=== PATIENT | female | born 1970 | race Caucasian/White ===

== ENCOUNTER 2017-10-02 21:09 | Emergency (ER) | payer SELFPAY ==
[~2017-10-02] VITALS: Ht 162.6 cm; Wt 113.6 kg
[~2017-10-02 21:09] MED LIST: EPIN0.3P2 IM; IBUP-2077 PO; PREG25 PO
[2017-10-02] MEDS ORDERED: ASPI-556 PO (21:12)
[2017-10-02 21:40] LABS: APPEARANCE,URINE TURBID (CLEAR); BILIRUBIN,URINE NEGATIVE (NEGATIVE); GLUCOSE, URINE (UA) NEGATIVE (NEGATIVE); KETONES,URINE TRACE mg/dL (NEGATIVE); LEUKOCYTE ESTERASE ,URINE LARGE (NEGATIVE); NITRATE,URINE POSITIVE (NEGATIVE); OCCULT BLOOD,URINE LARGE (NEGATIVE); PROTEIN,URINE SEE CONFIRM (NEGATIVE)
[2017-10-02 21:45] LABS: HCG,QUAL RESULT NEGATIVE (NEGATIVE)
[2017-10-02 21:49] LABS: BACTERIA,URINE Moderate /HPF (None Seen); RBC,URINE >100 /HPF (0-2); SULFOSALICYLIC ACID,URINE 2+ (Negative); WBC,URINE 26-50 /HPF (0-5)
[2017-10-02 21:50] LABS: SQUAMOUS EPITHELIAL CELL,UR Few /LPF (None Seen)
[2017-10-02 23:45] VITALS: BP 128/77
[2017-10-02] MEDS ORDERED: ACETAMINOPHEN/CODEINE 300-30 MG TABLET PO ONE (23:45)
[2017-10-02] MEDS ORDERED: LIDOCAINE HCL/PF 1% 2 ML VIAL IM ONE (23:45)
[2017-10-02] MEDS ORDERED: ONDANSETRON HCL 4 MG TABLET PO ONE (23:45)
[2017-10-02] MEDS ORDERED: LEVOFLOXACIN 500 MG TABLET PO ONE (23:45)
[2017-10-02] MEDS ORDERED: CefTRIAXone SODIUM 1 GM/VIAL IM ONE (23:45)
== END 2017-10-02 23:54 | disposition home or self-care (01) ==
LOC: EMS 21:10
DX: N10 Acute pyelonephritis (principal); F41.9 Anxiety disorder, unspecified; I10 Essential (primary) hypertension; F17.210 Nicotine dependence, cigarettes, uncomplicated; Z79.82 Long term (current) use of aspirin; Z87.440 Personal history of urinary (tract) infections; Z91.013 Allergy to seafood
CPT/HCPCS: 81001; 84703; 87077; 87086; 87186; 96372; 99284; 99406; J0696; J3490; Q0162

== ENCOUNTER 2017-10-27 17:37 | Emergency (ER) | payer SELFPAY ==
[~2017-10-27] VITALS: Ht 162.6 cm; Wt 130.0 kg
[~2017-10-27 17:37] MED LIST changes: +ASPI-556 PO
[2017-10-27 18:53] VITALS: BP 129/79
== END 2017-10-27 18:59 | disposition home or self-care (01) ==
LOC: EMS 17:39
DX: B02.9 Zoster without complications (principal); F17.210 Nicotine dependence, cigarettes, uncomplicated; Z91.013 Allergy to seafood
CPT/HCPCS: 99283

== ENCOUNTER 2017-12-22 15:12 | Emergency (ER) | payer MEDICAID ==
[~2017-12-22] VITALS: Ht 165.1 cm; Wt 125.9 kg
[2017-12-22 16:29] VITALS: BP 121/80
[2017-12-22] MEDS ORDERED: POVIDONE-IODINE 10% 15 ML SOLUTION UD TP ONE (16:45)
[2017-12-22] MEDS ORDERED: BUPIVACAINE HCL/PF 0.25% 10 ML VIAL INJ ONE (16:45)
[2017-12-22] MEDS ORDERED: LIDOCAINE HCL 1% 10 ML VIAL INJ ONE (16:45)
== END 2017-12-22 17:45 | disposition home or self-care (01) ==
LOC: EMS 15:14
DX: L60.0 Ingrowing nail (principal); R03.0 Elevated blood-pressure reading, without diagnosis of hypertension; F17.210 Nicotine dependence, cigarettes, uncomplicated; M19.90 Unspecified osteoarthritis, unspecified site; Z79.82 Long term (current) use of aspirin; Z91.013 Allergy to seafood
CPT/HCPCS: 11730; 99284; J3490 ×2

== ENCOUNTER 2018-08-11 21:40 | Emergency (ER) | payer MEDICAID, OTHER ==
[~2018-08-11] VITALS: Ht 165.1 cm; Wt 124.3 kg
[2018-08-11] MEDS ORDERED: FAMO20 PO (22:19)
[2018-08-12 00:45] VITALS: BP 117/75
[2018-08-12] MEDS ORDERED: KETOROLAC TROMETHAMINE 60 MG/2 ML VIAL IM ONE ×2 (01:15)
[2018-08-12] MEDS ORDERED: CYCLOBENZAPRINE HCL 10 MG TABLET PO ONE ×2 (01:15)
== END 2018-08-12 01:20 | disposition home or self-care (01) ==
LOC: EMS 21:42
DX: M54.42 Lumbago with sciatica, left side (principal); M79.662 Pain in left lower leg; F41.9 Anxiety disorder, unspecified; M19.90 Unspecified osteoarthritis, unspecified site; G89.4 Chronic pain syndrome; F17.210 Nicotine dependence, cigarettes, uncomplicated; Z90.49 Acquired absence of other specified parts of digestive tract; Z90.722 Acquired absence of ovaries, bilateral; Z91.013 Allergy to seafood; Z79.1 Long term (current) use of non-steroidal anti-inflammatories (NSAID); Z79.82 Long term (current) use of aspirin; Z79.899 Other long term (current) drug therapy
CPT/HCPCS: 96372; 99283; J1885

== ENCOUNTER 2018-09-03 10:59 | Emergency (ER) | payer MEDICAID, OTHER ==
[~2018-09-03] VITALS: Ht 160 cm; Wt 122.3 kg
[~2018-09-03 10:59] MED LIST changes: +FAMO20 PO
[2018-09-03] MEDS ORDERED: BACITRACIN 0.9 GM PACKET OINTMENT TP ONE (12:45)
[2018-09-03 13:00] VITALS: BP 125/86
== END 2018-09-03 13:01 | disposition home or self-care (01) ==
LOC: EMS 11:00
DX: T16.1XXA Foreign body in right ear, initial encounter (principal); F17.210 Nicotine dependence, cigarettes, uncomplicated; F41.9 Anxiety disorder, unspecified; K21.9 Gastro-esophageal reflux disease without esophagitis; Z90.49 Acquired absence of other specified parts of digestive tract; Z90.722 Acquired absence of ovaries, bilateral; Z91.013 Allergy to seafood; Z79.82 Long term (current) use of aspirin; Z79.899 Other long term (current) drug therapy; X58.XXXA Exposure to other specified factors, initial encounter; Y93.89 Activity, other specified; Y92.89 Other specified places as the place of occurrence of the external cause; Y99.8 Other external cause status
CPT/HCPCS: 69200; 99284